=== PATIENT | male | born 1955 | race Caucasian/White ===

== ENCOUNTER 2020-11-03 10:51 | Emergency (ER) | payer MEDICARE, OTHER ==
[~2020-11-03] VITALS: Ht 180.3 cm; Wt 71.6 kg
[2020-11-03] MEDS ORDERED: FENTANYL PF 100 MCG/2ML ONE ×2 (11:53→12:33)
[2020-11-03] MEDS ORDERED: FENTANYL PF 100 MCG/2ML IVPush ONE ×2 (12:00→13:00)
[2020-11-03 12:04] VITALS: BP 144/89
--- NOTE | 2020-11-03 12:05 | NUR ---
Pt presents with rectal pain and complaint of diarrhea. States he was previously constipated last week, had one normal BM on Sunday and since has been "leaking" every 15 minutes. Pt reports gabriele blood with BM intermittently.
[2020-11-03 12:21] LABS: BASOPHILS % (AUTO) 0 % (0-1); EOSINOPHILS % (AUTO) 0 % (1-7); LYMPHOCYTES % (AUTO) 19 % (22-44); MEAN CORPUSCULAR HEMOGLOBIN 31.7 pg (27.5-34.5); MEAN CORPUSCULAR HGB CONC 33.4 g/dL (33.2-36.2); MEAN PLATELET VOLUME 8.5 fL (7.4-10.4); MONOCYTES % (AUTO) 13 % (2-9); NEUTROPHILS % (AUTO) 67 % (42-75); PLATELET COUNT 151 x10^3/uL (130-400); RED BLOOD COUNT 4.31 x10^6/uL (4.38-5.82); RED CELL DISTRIBUTION WIDTH 15.3 % (9.4-14.8)
[2020-11-03 12:33] LABS: ALANINE AMINOTRANSFERASE 23 U/L (12-78); ALBUMIN 3.6 g/dL (3.4-5.0); ANION GAP 9 mmol/L (5-15); CALCIUM 8.9 mg/dL (8.5-10.1); CHLORIDE 110 mmol/L (98-107)
[2020-11-03 12:35] LABS: ALKALINE PHOSPHATASE 44 U/L (45-117); BILIRUBIN,TOTAL 0.9 mg/dL (0.2-1.0); CREATININE 1.07 mg/dL (0.7-1.3); TOTAL PROTEIN 7.3 g/dL (6.4-8.2)
--- NOTE | 2020-11-03 12:38 | NUR ---
This RN at bedside with MD Culp to attempt rectal disimpation.
--- NOTE | 2020-11-03 12:39 | NUR ---
Verbal order from MD Law for another 50mcg Fentanyl now. Administer with MD at bedside.
[2020-11-03] MEDS ORDERED: PROPOFOL 10 MG/ML, 20ML IVPush ONE ×2 (13:00→14:30)
[2020-11-03] MEDS ORDERED: PROPOFOL 10 MG/ML, 20ML ONE (13:30)
--- NOTE | 2020-11-03 13:30 | NUR ---
Report and care to AGUEDA Guillen.
--- NOTE | 2020-11-03 14:19 | NUR ---
Uneventful fecal impaction via procedural sedation (total of 80mg of propofol). MD removed significant amount of impacted stool
== END 2020-11-03 15:24 | disposition home or self-care (01) ==
LOC: ED 14:50
DX: K59.00 Constipation, unspecified (principal)
CPT/HCPCS: 36415; 74018; 80053; 85025; 99285; J3010